=== PATIENT | female | born 1940 | race Caucasian/White ===

== ENCOUNTER 2019-04-21 12:55 | Emergency (ER) | payer OTHER ==
[2019-04-21 13:23] VITALS: BMI 32.8
--- NOTE | 2019-04-21 15:47 | PDOC ---
Attending Attestation - ED Attending Attestation I have performed the following: I have examined & evaluated the patient, The case was reviewed & discussed with the resident, I agree w/resident's findings & plan, Exceptions are as noted - HPI HPI: 04/21/19 15:50 Ms. Guerra is a 78 yo F who presents to the ER from the [facility] office due to elevated BP Pt was noted to have BP >200/100! Pt is upset because today is the anniversary of her mother's passing and she is also grieving her husbands passing She denies chest pain She denies shortness of breath She denies abdominal pain She denies headache While waiting in the ER, pt BP decreased with no intervention - Physicial Exam PE: 04/21/19 15:47 Physical Exam GENERAL: The patient is in no acute distress. HEAD: Normal EYES: PERRLA, EOMI, sclera anicteric, conjunctiva clear. ENT: Ears normal, nares patent, oropharynx clear without exudates. Moist mucous membranes. NECK: Normal range of motion, supple LUNGS: Breath sounds equal, clear to auscultation bilaterally. No wheezes, and no crackles. HEART:Regular rate and rhythm, normal S1 and S2 without murmur, rub or gallop. ABDOMEN: Soft, nontender, normoactive bowel sounds. No guarding, no rebound. EXTREMITIES: Normal range of motion, no edema. NEUROLOGICAL: Cranial nerves II through XII grossly intact. Normal speech. No focal neurological deficits. MUSCULOSKELETAL: Back non-tender to palpation, no CVA tenderness SKIN: Warm, Dry, normal turgor, no rashes or lesions noted. - Medical Decision Making 04/21/19 15:47 78 yo F presenting with elevated blood pressure No headache, no chest pain, no shortness of breath EKG - ST rate 109 bpm, axis nml, intervals nml, no st elevation or depression, T waves upright, artifact at baseline, LVH Labs wnl Will d/c home Follow up with PMD Clinical impression Stress reaction, initial presentation Hypertension, initial presentation
--- NOTE | 2019-04-21 15:58 | PDOC ---
History of Present Illness - General Chief Complaint: Blood Pressure Problem Stated Complaint: HIGH BP Time Seen by Provider: 04/21/19 15:29 History Source: Patient Exam Limitations: No Limitations - History of Present Illness Initial Comments: 78 yo F with no past medical history (not evaluated by a doctor in 5+ years) presents to the emergency department with elevated blood pressure after presenting for a routine eye examination at her optometrists office. Per the patient, she has never been diagnosed with HTN. She was at the office and was told her BP was in the 200s systolic. She endorses increased stress due to the anniversary of her mothers . Denies the following symptoms: headaches, fevers, visual changes, nausea, vomiting, chest pain, SOB, abdominal pain, dysuria, lightheadednes, FND, and dizziness. Denies decreased urinary output. Allergies: NKDA Past History - Past Medical History Allergies/Adverse Reactions: Allergies Allergy/AdvReac Type Severity Reaction Status Date / Time No Known Allergies Allergy Verified 04/21/19 13:12 Home Medications: Ambulatory Orders NK [No Known Home Medication] 04/21/19 COPD: No - Suicide/Smoking/Psychosocial Hx Smoking History: Never smoked Have you smoked in the past 12 months: No Information on smoking cessation initiated: No Hx Alcohol Use: No Drug/Substance Use Hx: No Review of Systems - Review of Systems Able to Perform ROS?: Yes Is the patient limited Thai proficient: No Constitutional: No: Chills, Diaphoresis, Fever, Weakness HEENTM: No: Eye Pain, Ear Pain, Nose Pain, Throat Pain, Mouth Pain Respiratory: No: Cough, Shortness of Breath, Hemoptysis Cardiac (ROS): No: Chest Pain, Lightheadedness, Palpitations, Syncope, Chest Tightness ABD/GI: No: Constipated, Diarrhea, Nausea, Rectal Bleeding, Vomiting, Tarry Stools : No: Burning, Dysuria, Hematuria, Incontinence Musculoskeletal: No: Back Pain, Joint Pain, Neck Pain Integumentary: No: Bruising, Erythema, Rash Neurological: No: Headache, Numbness, Tingling, Tremors Psychiatric: No: Change in Appetite Endocrine: No: Unexplained Weight Gain Hematologic/Lymphatic: No: Anemia *Physical Exam - Vital Signs Last Vital Signs Temp Pulse Resp BP Pulse Ox 97.8 F 92 H 20 164/100 96 04/21/19 14:30 04/21/19 14:30 04/21/19 14:30 04/21/19 14:30 04/21/19 14:30 - Physical Exam General Appearance: Yes: Nourished, Appropriately Dressed, Other (tearful on examination). No: Apparent Distress, Intoxicated HEENT: positive: EOMI, JESSICA, Normal Voice, Symmetrical, Pharynx Normal, Hearing Grossly Normal. negative: Pale Conjunctivae, Scleral Icterus (R), Scleral Icterus (L), Muffled/Hoarse voice, Pharyngeal Erythema, Tonsillar Exudate, Tonsillar Erythema, Nasal Congestion, Rhinorrhea, Sinus Tenderness, Excessive drooling Neck: positive: Trachea midline, Supple. negative: Tender, Lymphadenopathy (R) , Lymphadenopathy (L), Tender lateral, Tender midline Respiratory/Chest: positive: Lungs Clear, Normal Breath Sounds. negative: Chest Tender, Respiratory Distress, Accessory Muscle Use, Crackles, Rales, Rhonchi, Stridor, Wheezing Cardiovascular: positive: Regular Rhythm, S1, S2, Tachycardia. negative: Systolic Murmur Gastrointestinal/Abdominal: positive: Normal Bowel Sounds, Flat, Soft. negative : Tender, Distended, Guarding, Hepatomegaly Lymphatic: negative: Adenopathy Musculoskeletal: positive: Normal Inspection. negative: CVA Tenderness, Vertebral Tenderness Extremity: positive: Normal Capillary Refill, Normal Inspection, Normal Range of Motion. negative: Tender, Swelling, Calf Tenderness Integumentary: positive: Normal Color, Dry, Warm. negative: Swelling, Ecchymosis Neurologic: positive: tray delivery aide II-XII NML intact, Fully Oriented, Alert, Normal Mood/ Affect, Normal Response, Motor Strength 5/5, Finger to Nose (intact bilaterally) . negative: EOM Palsy, Facial Droop, Numbness, Sensory Deficit ED Treatment Course - LABORATORY CBC & Chemistry Diagram: 04/21/19 15:15 04/21/19 16:13 Medical Decision Making - Medical Decision Making 78 yo F with no past medical history (not evaluated by a doctor in 5+ years) presents to the emergency department with elevated blood pressure after presenting for a routine eye examination at her optometrists office. initial vitals Initial Vital Signs Temp Pulse Resp BP Pulse Ox 98.1 F 111 H 18 259/92 H 98 04/21/19 13:00 04/21/19 13:00 04/21/19 13:00 04/21/19 13:00 04/21/19 13:00 Work up: HTN emergency vs urgency. Patient denies symptomatic complaints. Upon interviewing the patient, her BP improved dramatically to 185/85. The patient will have a cbc cmp and trops to look for end organ damage. Laboratory Tests 04/21/19 04/21/19 15:15 16:13 WBC 10.2 H RBC 4.80 Hgb 13.9 Hct 41.7 MCV 86.9 MCH 29.1 MCHC 33.5 RDW 13.4 Plt Count 374 MPV 7.1 L Absolute Neuts (auto) 8.1 H Neutrophils % 80.2 Lymphocytes % 14.9 Monocytes % 3.7 L Eosinophils % 0.3 Basophils % 0.9 Nucleated RBC % 0 Sodium 138 Potassium 4.2 Chloride 103 Carbon Dioxide 28 Anion Gap 8 BUN 17.0 Creatinine 1.1 Est GFR (CKD-EPI)AfAm 56.08 Est GFR (CKD-EPI)NonAf 48.39 Random Glucose 94 Calcium 9.6 Total Bilirubin 0.6 AST 12 L ALT 17 Alkaline Phosphatase 70 Creatine Kinase 43 Troponin I < 0.02 Total Protein 7.7 Albumin 4.0 Patient's BP on reassessment without intervention improved to 164/100. Patient' s labs were within normal limits. CXR was normal and EKG was NSR. Patient to be discharged with referral to a PMD and hse manager. Dispo: Discharge *DC/Admit/Observation/Transfer Diagnosis at time of Disposition: High blood pressure - Discharge Dispostion Disposition: HOME Condition at time of disposition: Stable Decision to Admit order: No - Referrals Referrals: [facility] [place] [facility] [Provider Group] Yefri Zimmerman MD [Staff Physician] - - Patient Instructions Printed Discharge Instructions: DI for High Blood Pressure, How to Monitor Your Blood Pressure at Home Additional Instructions: You were seen for the evaluation of your high blood pressure. Your blood pressure resolved while in the emergency department. Please follow up with the referred physician group and the hse manager within 1 week after discharge. Thank you. - Post Discharge Activity
[2019-04-21 16:24] LABS: BASO % 0.9 % (0-2.0); EOS % 0.3 % (0-4.5); HEMATOCRIT 41.7 % (32.4-45.2); HEMOGLOBIN 13.9 GM/dL (10.7-15.3); LYMPH % 14.9 % (8-40); MCH 29.1 pg (25.7-33.7); MCHC 33.5 g/dl (32.0-36.0); MEAN CELL VOLUME 86.9 fl (80-96); MEAN PLT VOLUME 7.1 fl (7.5-11.1); MONO % 3.7 % (3.8-10.2); NEUT % 80.2 % (42.8-82.8); PLATELET COUNT 374 K/MM3 (134-434); RDW 13.4 % (11.6-15.6); WHITE BLOOD COUNT 10.2 K/mm3 (4.0-10.0)
[2019-04-21 16:49] VITALS: BP 162/100; PULSE 100; TEMP 98
[2019-04-21 16:51] LABS: ALK PHOS 70 U/L (45-117); ANION GAP 8 MMOL/L (8-16); BILIRUBIN,TOTAL 0.6 mg/dL (0.2-1); CALCIUM 9.6 mg/dL (8.5-10.1); CHLORIDE 103 mmol/L (98-107); CO2 28 mmol/L (21-32); CREATININE 1.1 mg/dL (0.55-1.3); GLUCOSE,RANDOM 94 mg/dL (74-106); POTASSIUM 4.2 mmol/L (3.5-5.1); SGOT/AST 12 U/L (15-37); SGPT/ALT 17 U/L (13-61); SODIUM 138 mmol/L (136-145); TOT PROT 7.7 g/dl (6.4-8.2)
--- NOTE | 2019-04-23 17:10 | EKG ---
Test Reason : Blood Pressure : / mmHG Vent. Rate : 109 BPM Atrial Rate : 109 BPM P-R Int : 152 ms QRS Dur : 086 ms QT Int : 350 ms P-R-T Axes : 071 016 066 degrees QTc Int : 471 ms POOR DATA QUALITY, INTERPRETATION MAY BE ADVERSELY AFFECTED SINUS TACHYCARDIA BIATRIAL ENLARGEMENT LEFT VENTRICULAR HYPERTROPHY NONSPECIFIC T WAVE ABNORMALITY ABNORMAL ECG NO PREVIOUS ECGS AVAILABLE Confirmed by YE PINA MD ([id number]) on 04/23/2019 5:10:44 PM Referred By: Confirmed By:YE PINA MD
== END 2019-04-21 17:36 | disposition home or self-care (01) ==
LOC: JER 12:55
DX: I10 Essential (primary) hypertension (principal)
CPT/HCPCS: 36415; 71046-TC-FY; 80053; 82550; 84484; 85025; 93005; 93010; 99283-25